=== PATIENT | female | born 1965 | race Caucasian/White ===

== ENCOUNTER 2018-10-03 10:23 | Emergency (ER) | payer BC, MEDICAID ==
[2018-10-03 10:55] VITALS: BP 127/86
--- NOTE | 2018-10-03 11:05 | UC ---
Skin Complaint HPI - HPI Summary HPI Summary: Pt c/o right outer ear canal swelling, pain and clear/yellow drainage X 1 month. Pt had ear piercing near area of concern ~ 4 weeks ago. - History of Current Complaint Chief Complaint: UCSkin Time Seen by Provider: 10/03/18 10:51 Stated Complaint: BILATERAL EAR CONCERN Hx Obtained From: Patient Hx Last Menstrual Period: 06/07/12 ?: No Onset/Duration: Gradual Onset, Lasting Weeks, Still Present, Worse Since - onset Skin Exposure Onset/Duration: Weeks Ago Timing: Constant Onset Severity: Mild Current Severity: Moderate Pain Intensity: 8 Location: Discrete, Ear (Right) Character: Pain, Redness, Raised Aggravating Factor(s): Touch Alleviating Factor(s): Heat Associated Signs & Symptoms: Positive: Drainage, Tenderness Related History: Other: - had ear piercing - Allergy/Home Medications Allergies/Adverse Reactions: Allergies Allergy/AdvReac Type Severity Reaction Status Date / Time No Known Allergies Allergy Verified 10/03/18 10:51 Home Medications: Home Medications Ibuprofen TAB* [Advil TAB*] 800 mg PO Q8H PRN 10/03/18 [History Confirmed ] PMH/Surg Hx/FS Hx/Imm Hx Previously Healthy: Yes - Surgical History Surgical History: Yes Surgery Procedure, Year, and Place: Bilateral Ear Tubes, 2016, [facility]; C- Section, 1991, [place] - Family History Known Family History: Positive: Cardiac Disease - Social History Occupation: Employed Full-time Lives: With Family Alcohol Use: Occasionally Substance Use Type: None Smoking Status (MU): Heavy Every Day Tobacco Smoker Type: Cigarettes Amount Used/How Often: 1/2 PPD Length of Time of Smoking/Using Tobacco: Since Age 15 Have You Smoked in the Last Year: Yes Household Exposure Type: Cigarettes Review of Systems All Other Systems Reviewed And Are Negative: Yes Constitutional: Positive: Negative Skin: Positive: Other - erythema, swelling, tenderness, clear serous drainage ENT: Positive: Other - outer ear swelling, bilateral ear tubes, wears hearing aid in left ear Respiratory: Positive: Negative Cardiovascular: Positive: Negative Gastrointestinal: Positive: Negative Genitourinary: Positive: Negative Motor: Positive: Negative Neurovascular: Positive: Negative Musculoskeletal: Positive: Negative Neurological: Positive: Negative Psychological: Positive: Negative Is Patient Immunocompromised?: No Physical Exam Triage Information Reviewed: Yes Appearance: Pain Distress Vital Signs: Initial Vital Signs Temp 98.2 F 10/03/18 10:49 Pulse 72 10/03/18 10:49 Resp 16 10/03/18 10:49 BP 127/86 10/03/18 10:49 Pulse Ox 98 10/03/18 10:49 Vital Signs Reviewed: Yes Eye Exam: Normal ENT: Positive: Other - right ear puter canal moderate swelling, canal is still ope to visualize TM with ear tube intact. clear, serous drainage, mild erythema , ~ 2cm X 3 cm Dental Exam: Normal Neck exam: Normal Respiratory Exam: Normal Musculoskeletal Exam: Normal Neurological Exam: Normal Psychological Exam: Normal Skin Exam: Other - right ear puter canal moderate swelling, canal is still ope to visualize TM with ear tube intact. clear, serous drainage, mild erythema, ~ 2cm X 3 cm Course/Dx - Differential Diagnoses - Skin Complaint Differential Diagnoses: Abscess, MRSA - Diagnoses Provider Diagnosis: Cellulitis, Wound infection Discharge - Sign-Out/Discharge Documenting (check all that apply): Patient Departure All imaging exams completed and their final reports reviewed: No Studies - Discharge Plan Condition: Stable Disposition: HOME Prescriptions: Cephalexin CAP* [Keflex 500 CAP*] 500 mg PO Q8H #21 cap Mupirocin 2% OINT* [Bactroban 2 % Oint*] 1 applic TOPICAL Q12H #1 tube Patient Education Materials: Wound Infection (ED) Referrals: Abimbola Galdamez MD [Primary Care Provider] - 10/16/18 - Billing Disposition and Condition Condition: STABLE Disposition: Home
== END 2018-10-03 11:30 | disposition home or self-care (01) ==
LOC: UCCORT 10:23
DX: T81.49XA Infection following a procedure, other surgical site, initial encounter (principal); H60.12 Cellulitis of left external ear; F17.210 Nicotine dependence, cigarettes, uncomplicated
CPT/HCPCS: 99212; G0463

== ENCOUNTER 2019-02-21 19:05 | Emergency (ER) | payer BC ==
[2019-02-21 19:35] VITALS: BP 129/70
--- NOTE | 2019-02-21 19:47 | UC ---
Ear Complaint HPI - HPI Summary HPI Summary: C/O cup of hearing aid stuck in the left ear. - History of Current Complaint Chief Complaint: UCEar Stated Complaint: FB IN EAR Time Seen by Provider: 02/21/19 19:37 Hx Obtained From: Patient Hx Last Menstrual Period: 06/07/12 ?: No Onset/Duration: Sudden Onset, Lasting Hours - 1, Still Present Severity Initially: Mild Severity Currently: Mild Pain Intensity: 0 Aggravating Factors: FB - hearing aid rubber tip Associated Signs/Symptoms: Positive: Foreign Body Sensation Related History: Prior ENT Surgery - BMT - Allergies/Home Medications Allergies/Adverse Reactions: Allergies Allergy/AdvReac Type Severity Reaction Status Date / Time No Known Allergies Allergy Verified 02/21/19 19:33 Home Medications: Home Medications NK [No Home Medications Reported] 02/21/19 [History Confirmed 02/21/19] PMH/Surg Hx/FS Hx/Imm Hx - Surgical History Surgical History: Yes Surgery Procedure, Year, and Place: Bilateral Ear Tubes, 2016, [facility]; C- Section, 1991, [place] - Family History Known Family History: Positive: Cardiac Disease, Hypertension - Social History Occupation: Employed Full-time Lives: With Family Alcohol Use: Rare Substance Use Type: None Smoking Status (MU): Heavy Every Day Tobacco Smoker Type: Cigarettes Amount Used/How Often: 1/2 PPD Length of Time of Smoking/Using Tobacco: Since Age 15 Have You Smoked in the Last Year: Yes Household Exposure Type: Cigarettes Cessation Counseling: Patient Advised to Stop Review of Systems All Other Systems Reviewed And Are Negative: Yes ENT: Positive: Other - FB left ear Is Patient Immunocompromised?: No Physical Exam Triage Information Reviewed: Yes Appearance: Well-Appearing, No Pain Distress, Well-Nourished Vital Signs: Initial Vital Signs Temp 97.6 F 02/21/19 19:33 Pulse 72 02/21/19 19:33 Resp 16 02/21/19 19:33 BP 129/70 02/21/19 19:33 Pulse Ox 98 02/21/19 19:33 Vital Signs Reviewed: Yes Eyes: Positive: Conjunctiva Clear ENT: Positive: Pharynx normal, TMs normal - right TM with tube in place., Other - left ear canal with hearing tip in place. Neck exam: Normal Respiratory Exam: Normal Cardiovascular Exam: Normal Musculoskeletal Exam: Normal Neurological Exam: Normal Psychological Exam: Normal Skin Exam: Normal Procedures - Procedure Summary Procedure Summary: Removal FB left ear. Under direct visualization hearing aid tip removed with alligator forceps. Ear Complaint Course/Dx - Differential Dx/Diagnosis Differential Diagnosis/HQI/PQRI: Cerumen Impaction, Foreign Body, Otitis Media Provider Diagnosis: Foreign body in left ear Discharge - Sign-Out/Discharge Documenting (check all that apply): Patient Departure All imaging exams completed and their final reports reviewed: No Studies - Discharge Plan Condition: Stable Disposition: HOME Patient Education Materials: Ear Foreign Body (ED) Referrals: Sandhya Barbour MD [Primary Care Provider] - Additional Instructions: Smoking Cessation Tricks. 1. Cut down by 1 cigarette per day every 2-3 days. Write the number of smokes for that day on the calendar. 2. Identify triggers to smoking: after meals, on the phone, in the car, with coffee, on breaks at work, etc. 3. Formulate a plan with a behavior to replace the smoking. Fireballs in the car , doodle pad on the phone, flavored creamer for the coffee, go for a walk after a meal or on break at work. 4. For stress smokes do deep breathing relaxation. Breath deep in through the nose hold the breath in for a few seconds then breath out slowly through the mouth. - Billing Disposition and Condition Condition: STABLE Disposition: Home
== END 2019-02-21 19:50 | disposition home or self-care (01) ==
LOC: UCCORT 19:05
DX: T16.2XXA Foreign body in left ear, initial encounter (principal); X58.XXXA Exposure to other specified factors, initial encounter; Y92.9 Unspecified place or not applicable; Z87.891 Personal history of nicotine dependence
CPT/HCPCS: 69200; 99211; G0463